=== PATIENT | female | born 1980 | race Hispanic/Latino ===

== ENCOUNTER → 2020-01-15 | Outpatient (CLI) | payer OTHER ==
--- NOTE | 2020-01-15 15:46 | Diagnostic Imaging Report ---
Thyroid ultrasound CPT code: 95625 History: Multiple thyroid nodules Comparison: None Findings: The thyroid echotexture is normal. Vascularity is normal. The right lobe measures 5.4 x 2.5 x 2.5 cm. The left lobe measures 4.6 x 1.9 x 2.0 cm. The isthmus measures 0.5 cm. Nodules (measurements are AP, transverse, craniocaudal): Right Lobe: Complex part cystic part solid, hypoechoic, circumscribed, wider than tall interpolar nodule measures 3.0 x 2.0 x 2.1 cm without associated calcifications. Left Lobe: No cystic mass or discrete solid nodule identified. cm. Isthmus: No cystic mass or discrete solid nodule identified. Lymph Nodes: No cervical lymph nodes are identified. Parathyroids: Not visualized. IMPRESSION: Complex part cystic part solid right interpolar thyroid nodule measures up to 3 cm (TR3). Recommend FNA. ACR glossary of thyroid rads TI-RADS 1: No focal lesion. TI-RADS 2: Not suspicious. TI-RADS 3: Mildly suspicious (recommend FNA is greater than or equal to 2.5 cm; follow-up at 1, 3, and 5 years if greater than or equal to 1.5 cm) TI-RADS 4: Moderately Suspicious (recommend FNA is greater than or equal to 1.5 cm; follow-up at 1, 2, 3, and 5 years) TI-RADS 5: Highly suspicious (recommend FNA is greater than or equal to 10 mm) TI-RADS 6: Biopsy-proven malignancy Signed by: Sherman Lockwood MD on 01/15/2020 3:44 PM
== END ==
LOC: US 08:38
PROVIDERS: ATTEND Otolaryngology
DX: E04.2 Nontoxic multinodular goiter (principal)
CPT/HCPCS: 76536